=== PATIENT | male | born 1985 | race African-American/Black ===

== ENCOUNTER 2017-09-09 13:04 | Emergency (ER) | payer SELFPAY ==
[~2017-09-09] VITALS: Ht 182.9 cm; Wt 114.3 kg
[2017-09-09 13:19] VITALS: BP 140/81
--- NOTE | 2017-09-09 14:08 | NUR ---
32/M PRESENT TO ER C/O RT WRIST PAIN x YESTERDAY @ 1130. PT STS WHILE PLAYING FOOTBALL, HE FELL AND LANDED ON RT HAND, PT DENIES KO/LOC. SWELLING NOTED TO RIGHT WRIST. CMS AND SKIN INTACT. LIMITED ROM TO RIGHT WRIST. PT IS AOX4. RR ARE EVEN AND UNLABORED. PT POSITIONED FOR COMFORT, BED DOWN. ER MD AWARE OF PT STATUS.
--- NOTE | 2017-09-09 14:13 | NUR ---
ICE PACK APPLIED TO RIGHT WRIST
[2017-09-09] MEDS ORDERED: traMADol 50 MG TAB PO ONE (14:55)
[2017-09-09 15:30] VITALS: BP 140/81
--- NOTE | 2017-09-09 15:30 | NUR ---
Patient discharged with v/s stable. Written and verbal after care instructions given and explained. Patient alert, oriented and verbalized understanding of instructions. Ambulatory with steady gait. All questions addressed prior to discharge. ID band removed. Patient advised to follow up with PMD. Rx of NAPROXEN AND TRAMDADOL given. Patient educated on indication of medication including possible reaction and side effects. Opportunity to ask questions provided and answered.
== END 2017-09-09 15:00 | disposition home or self-care (01) ==
LOC: MED 13:04
DX: S52.591A Other fractures of lower end of right radius, initial encounter for closed fracture (principal); S52.611A Displaced fracture of right ulna styloid process, initial encounter for closed fracture; X58.XXXA Exposure to other specified factors, initial encounter; Y93.61 Activity, american tackle football; Y92.89 Other specified places as the place of occurrence of the external cause; Y99.8 Other external cause status
CPT/HCPCS: 29125; 73110; 99284; Q0092